=== PATIENT | male | born 2000 | race Caucasian/White ===

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

== ENCOUNTER 2024-12-14 13:39 | Emergency (ER) | payer MEDICAID ==
[~2024-12-14] VITALS: Ht 172.7 cm; Wt 55.3 kg
--- NOTE | 2024-12-14 13:54 | ELECTROCARDIOGRAPH REPORT ---
[facility] Test Date: 2024-12-14 Test Time: 13:42:21 Pat Name: DARRELL ORDAZ Department: EMERGENCY ROOM Room: Gender: M [employer]: KAY : 2000 Requested By: SHARRI LEZAMA Order Number: [id number] Reading MD: Measurements Intervals [place] Rate: 112 P: 76 DE: 143 QRS: 72 QRSD: 88 T: 65 QT: 313 QTc: 428 Interpretive Statements Sinus tachycardia Probable left atrial enlargement RSR' in V1 or V2, probably normal variant Please click the below link to view image of tracing.
[2024-12-14 14:13] LABS: MEAN PLATELET VOLUME 7.7 FL (7.4-10.4); RED CELL DISTRIBUTION WIDTH 13.4 % (11.5-14.5)
--- NOTE | 2024-12-14 14:24 | RADIOLOGY REPORT ---
DI CHEST,SINGLE VIEW, HISTORY: CP COMPARISON: None None TECHNICAL DATA: 1 view of the chest was obtained. FINDINGS: Lines and tubes: None Cardiomediastinal silhouette: normal Pulmonary vasculature: normal Lung expansion: normal Lung airspace: normal Lung interstitium: normal Pleura: normal Pneumothorax: no Bones: Unremarkable Other: no IMPRESSION: No acute intrathoracic abnormality.
[2024-12-14 14:32] LABS: CREATININE 1.00 MG/DL (0.60-1.10); PRO BRAIN NATRIURETIC PEPTIDE < 30 PG/ML (0-125); TOTAL CARBON DIOXIDE 27.6 MMOL/L (24-32); eCRCL 89 ML/MIN; eGFR > 90 ML/MIN
[2024-12-14 14:51] VITALS: TEMP 98.6
--- NOTE | 2024-12-14 15:15 | Physician Documentation ---
History of Present Illness ~ Chief Complaint: Chest Pain Stated Complaint: CHEST PAIN Time Seen by MD: 14:03 Primary Medical Doctor: dr. vera Mode of Arrival: POV HPI Patient is seen today with complaints of chest pain in his left side. Patient states his sister has a pacemaker put in his age 22 in his father had a heart attack around age 40. Patient is concerned today about his already and possible heart attack. Patient denies any exertional chest pain and states the chest pain came on suddenly and radiates down his left arm into his left pinky and states his left pinky goes numb off and on. Patient has no other concern or complaint at this time. He denies any diaphoresis or shortness of breath or abdominal pain or nausea, vomiting, diarrhea. He has no other concern or complaint at this time Medication Reconciliation Allergies: Coded Allergies: No Known Allergies (Unverified , 12/05/19) Scheduled Clonidine Hcl* (Catapres*), 0.4 MG PO HS, (Reported) Fluoxetine Hcl (Prozac), 3 CAP PO QAM, (Reported) Methylphenidate HCl (Concerta), 1 TABLET PO QAM, (Reported) Past Medical History Past Medical History: Asthma, Anxiety, Bipolar Past Surgical History: other Other Past Surgical History: Nasal surgery Smoking Status: Never smoker Alcohol Use: None Drug Use: none Lives with: Mother Lives In: Home Occupation: student Review of Systems Constitutional: Denies: chills, fever, weakness Eyes: Denies: pain, blurred vision ENT: Denies: ear pain, nose pain, throat pain, mouth pain Respiratory: Denies: cough, shortness of breath Cardiovascular: Denies: chest pain, palpitations Gastrointestinal: Denies: abdominal pain, nausea, vomiting Genitourinary: Denies: burning, dysuria Male Genitalia: Denies: penile discharge, testicular pain Neurological: Denies: headache, dizziness Musculoskeletal: Denies: pain, swelling Integumentary: Denies: rash, lesions Allergic/Immunologic: Denies: hives, itching Hematologic/Lymphatic: Denies: no symptoms reported Psychiatric: Denies: depression, anxiety Physical Exam Vital Signs: Temperature: 98.6, Source: Oral, Heart Rate: 86, Respiratory Rate: 18, BP: 107/65, Pulse Oximetry: 100, Weight: 55.300 Physical Exam General: Awake and Alert, no acute distress. HEENT: Conjunctiva pink, Sclera clear, Mucus Membranes moist. Neck: Supple without masses and tenderness. Resp: Unlabored. Lungs clear to auscultation bilaterally. Chest: Patient on exam does have reproducible chest pain on palpation of the sternum and just left of the sternum in the left ribcage. Heart: Regular Rate and rhythm, normal S1 and S2 without murmur, rub or gallop. Abdomen: Soft and non tender no organomegaly Musculoskeletal: Patient has negative Tinel's of the left elbow, neurovascularly intact of the left upper extremity. Motor function and strength intact distally. Extremities: No cyanosis,clubbing or edema. Skin: Warm and Dry. Progress Results/Orders Results/Orders Vital Signs 12/14/24 12/14/24 12/14/24 12/14/24 13:52 14:01 14:03 14:51 Temp 98.6 98.6 Pulse 102 98 86 Resp 16 20 22 18 B/P (MAP) 127/75 121/75 (90) 107/65 (79) Pulse Ox 100 100 100 Laboratory Tests Test 12/14/24 13:46 White Blood Count 5.2 Red Blood Count 5.17 Hemoglobin 15.1 Hematocrit 43.8 Mean Corpuscular Volume 84.8 Mean Corpuscular Hemoglobin 29.1 Mean Corpuscular Hemoglobin Concent 34.4 Red Cell Distribution Width 13.4 Platelet Count 211 Mean Platelet Volume 7.7 Neutrophils (%) (Auto) 58.7 Lymphocytes (%) (Auto) 30.8 Monocytes (%) (Auto) 9.8 Eosinophils (%) (Auto) 0.3 Basophils (%) (Auto) 0.4 Neutrophils # (Auto) 3.1 Lymphocytes # (Auto) 1.6 Monocytes # (Auto) 0.5 Eosinophils # (Auto) 0.0 Basophils # (Auto) 0.0 CBC Comment Sodium Level 139 Potassium Level 3.2 L Chloride Level 101 Carbon Dioxide Level 27.6 Anion Gap 10 Blood Urea Nitrogen 13 Creatinine 1.00 Estimated GFR/1.73 m2 > 90 BUN/Creatinine Ratio 13.0 Glucose Level 86 Calcium Level 9.7 Troponin I High Sensitivity < 4 L Troponin I High Sens Percent Delta Troponin I Hi Sens Absolute Change Pro-B-Type Natriuretic Peptide < 30 Albumin 4.9 Chemistry Comments EKG/XRAY/CT/US/VASC/MRI EKG : Additional Comment EKG interpreted by myself today shows tachycardic rate at 112 beats per minute, sinus tachycardia, no axis deviation, no ST segment elevation or sign of ischemic changes. Heart Score: Heart Score Response (Comments) Value History Slightly Suspicious 0 EKG Normal 0 Age <45 0 Risk Factors No known risk factors 0 Troponin Normal limit 0 Total 0 Medical Decision Making Findings Patient is seen today with complaints of chest pain in his left side. Patient states his sister has a pacemaker put in his age 22 in his father had a heart attack around age 40. Patient is concerned today about his already and possible heart attack. Patient denies any exertional chest pain and states the chest pain came on suddenly and radiates down his left arm into his left pinky and states his left pinky goes numb off and on. Patient has no other concern or complaint at this time. He denies any diaphoresis or shortness of breath or abdominal pain or nausea, vomiting, diarrhea. He has no other concern or complaint at this time Patient's EKG and lab work and history and physical exam findings are all reassuring. Patient's troponin was less than four. Patient will follow up with primary care and get referral to Cardiology for possible Holter monitor testing and for further evaluation and treatment and monitoring given patient's family history. Patient will return to ED with any worsening, concerning or changing symptoms Departure Disposition: 01 HOME / SELF CARE / HOMELESS Impression: Primary Impression: Chest pain at rest Condition: Stable Discharge Instructions: Nonspecific Chest Pain, Adult Additional Instructions: Patient's EKG and lab work and history and physical exam findings are all reassuring. Patient's troponin was less than four. Patient will follow up with primary care and get referral to Cardiology for possible Holter monitor testing and for further evaluation and treatment and monitoring given patient's family history. Patient will return to ED with any worsening, concerning or changing symptoms Referrals: NO PRIMARY CARE PROVIDER (PCP) Signature Scribe Signature: No scribe Attestation: No scribe LILO WEAVER Dec 14, 2024 15:15
[2024-12-14 15:43] VITALS: BP 119/71; PULSE 87; RESP 24; O2SAT 100
== END 2024-12-14 15:50 | disposition home or self-care (01) ==
LOC: ER 13:39
DX: R07.89 Other chest pain (principal); J45.909 Unspecified asthma, uncomplicated; F31.9 Bipolar disorder, unspecified; Z79.899 Other long term (current) drug therapy
CPT/HCPCS: 36415; 71045; 80048; 83880; 84484; 85025; 93005; 99285

== ENCOUNTER 2025-04-11 15:14 | Outpatient (CLI) | payer MEDICAID ==
[2025-04-11 16:18] VITALS: PULSE 90; RESP 15; O2SAT 98
--- NOTE | 2025-04-12 15:21 | PROCEDURE NOTE - Respiratory ---
Procedure Note-Respiratory Providers to CC Copies To 1: RICA MCKENNA MD Procedure Name: This is a spirometry study dated April 11, 2025. Spirometry measurements: Both the forced vital capacity and the FEV1 are in the normal range. The FEV1 ratio is normal. The flow rate measurements are all normal. Bronchodilator was not administered as part of the study. Conclusion: Normal spirometry study. We have no previous studies for mariam faust. MAUREEN SALAZAR MD Apr 12, 2025 15:21
== END 2025-04-11 23:59 | disposition home or self-care (01) ==
LOC: RT 15:14
PROVIDERS: ATTEND Student in an Organized Health Care Education/Training Program
DX: R06.02 Shortness of breath (principal)
CPT/HCPCS: 94010; 94760; J7030